=== PATIENT | female | born 2000 | race African-American/Black ===

== ENCOUNTER 2019-10-31 07:15 | Inpatient (IN) | payer MEDICAID ==
[~2019-10-31 07:15] MED LIST: Lactated Ringers 1,000 ML IV SCH
[2019-10-31] MEDS ORDERED: cefOXitin 1 GM Vial ONE ×2 (08:11→11:38)
[2019-10-31] MEDS ORDERED: Oxytocin 10 Units/1 ML SDV ONE ×2 (08:11→12:03)
[2019-10-31] MEDS ORDERED: Sodium Chloride 0.9% 0 ML ONE (08:12)
[2019-10-31] MEDS ORDERED: Naloxone 0.4 MG/ML SDV IVPUSH PRN (11:31)
[2019-10-31] MEDS ORDERED: HYDROmorphone/Normal Saline 15 MG/30 ML PCA IV PRN (11:31)
[2019-10-31] MEDS ORDERED: diphenhydrAMINE 50 MG/ML SDV IVPUSH PRN (11:31)
[2019-10-31] MEDS ORDERED: diphenhydrAMINE 25 MG Cap PO PRN (11:31)
[2019-10-31] MEDS ORDERED: Ondansetron 4 MG/2 ML SDV IVPUSH PRN ×2 (11:31→13:11)
[2019-10-31] MEDS ORDERED: ePHEDrine 50 MG/ML SDV ONE (11:45)
[2019-10-31] MEDS ORDERED: Sodium Chloride 0.9% 10 ML ONE (11:53)
[2019-10-31] MEDS ORDERED: Phenylephrine 1% 10 MG/ML SDV ONE (11:54)
[2019-10-31] MEDS ORDERED: cefOXitin 2 GM Vial ONE (12:04)
[2019-10-31] MEDS: Ibuprofen 600 MG Tab PO SCH ×2 (14:52→20:46)
[2019-10-31] MEDS: Dextrose 5%-Lactated Ringers 1,000 ML IV SCH ×2 (15:40→22:24)
[2019-10-31] MEDS: Acetaminophen 500 MG Tab PO SCH ×2 (15:41→22:22)
[2019-10-31] MEDS ORDERED: hydrOXYzine HCL 100 MG/2 ML SDV IM PRN (16:46)
[2019-10-31] MEDS: hydrOXYzine HCl 25 MG Tab PO PRN (17:39)
[2019-10-31] MEDS: oxyCODONE 5 MG Tab PO PRN (17:39)
[2019-10-31] MEDS: cefOXitin 2 GM in Sodium Chloride 0.9% 50 ML IV SCH (17:40)
[2019-10-31] MEDS ORDERED: Ibuprofen 600 MG Tab PO SCH (18:00)
[2019-11-01] MEDS: cefOXitin 2 GM in Sodium Chloride 0.9% 50 ML IV SCH ×3 (01:05→12:05)
[2019-11-01] MEDS: Ibuprofen 600 MG Tab PO SCH ×4 (02:45→20:27)
[2019-11-01] MEDS: oxyCODONE 5 MG Tab PO PRN ×4 (02:45→23:08)
[2019-11-01] MEDS: Acetaminophen 500 MG Tab PO SCH ×4 (04:17→23:08)
[2019-11-01] MEDS: Dextrose 5%-Lactated Ringers 1,000 ML IV SCH (04:53)
[2019-11-01] MEDS: hydrOXYzine HCl 25 MG Tab PO PRN ×2 (05:03→12:04)
[2019-11-01] MEDS ORDERED: Dextrose 5%-Lactated Ringers 1,000 ML IV SCH (10:15)
[2019-11-01] MEDS: Docusate Sodium 100 MG Cap PO SCH ×2 (12:00→20:27)
[2019-11-01] MEDS: Bisacodyl 5 MG Tab PO SCH ×2 (12:00→20:27)
[2019-11-02] MEDS: Ibuprofen 600 MG Tab PO SCH ×2 (03:22→09:08)
[2019-11-02] MEDS: Acetaminophen 500 MG Tab PO SCH ×2 (03:22→11:07)
[2019-11-02] MEDS: oxyCODONE 5 MG Tab PO PRN (07:34)
[2019-11-02] MEDS: Docusate Sodium 100 MG Cap PO SCH (09:08)
[2019-11-02] MEDS: Bisacodyl 5 MG Tab PO SCH (09:08)
--- NOTE | 2019-11-02 14:21 | PN ---
DATE OF SERVICE: 11/01/2019 The patient is postoperative day #1 from a section electively as a repeat section. She also had an incisional hernia repair concurrently. Postoperatively, she has done well. She is tolerating oral pain medication at this point. We will go up to a regular diet today and give her some bowel stimulation. Dorman catheter will be coming out. Otherwise, maximize activity and work with pulmonary toilet. Sushil Galevz MD /[id number]
--- NOTE | 2019-11-10 12:41 | OR ---
DATE OF PROCEDURE: 10/31/2019 SURGEON: Sushil Galvez MD PREOPERATIVE DIAGNOSIS: Term with history of previous section. POSTOPERATIVE DIAGNOSES: 1. Term with history of previous section. 2. Incisional hernia. OPERATIVE PROCEDURE: 1. Repeat section (91071). 2. Repair of incisional hernia (93296). ANESTHESIA: Spinal. APPLICATION SYSTEMS ENGINEER: Billie Keith CNM. INDICATIONS FOR PROCEDURE: This is a 19-year-old female presenting with a term and history of previous section. The plan is to proceed with repeat section. Potential risks including bleeding, infection, injury to underlying viscera, injury to baby and to mother during the procedure were all reviewed, and the patient wishes to proceed. DETAILS OF PROCEDURE: The patient was taken to the operating room, and after spinal anesthetic was placed, a Dorman catheter was placed, and the patient was positioned with a hip roll on the right side to offload the vena cava. The abdomen was then prepped and draped. The previous transverse Pfannenstiel incision was made and carried down through the skin, subcutaneous tissue and through the anterior rectus sheath. Rectus sheath flaps were then raised superiorly and inferiorly. The patient was noted to have an incisional hernia with some incarcerated omentum in between the leaves of the rectus muscle on the upper half of the incision. This was dissected free at this point and returned back into the peritoneal cavity. The remaining attachments between the rectus muscles were then divided in the midline, and then the peritoneal reflection of the bladder on the uterus was divided and reflected downward. A transverse uterine incision was made. A viable female was delivered through a vertex presentation. Cord was clamped and cut, and routine care was given off the field per Billie Keith. The patient was given IV intrauterine oxytocin and IV cefoxitin. The placental separation appeared to be clean and the placenta delivered without difficulty. Uterine contractions were satisfactory, and the uterus was then closed with 2 layers of 2-0 Vicryl stitch as was the peritoneal reflection of the bladder on the uterus. The midline musculature was then approximated, which included repair of the incisional hernia with a #2 Vicryl stitch. Anterior rectus sheath was also closed with a #2 Vicryl stitch, subcutaneous tissue with 4-0 Vicryl stitch, and the skin with a 4-0 Vicryl subcuticular stitch. Some surgical glue was then placed on the incision. The patient was taken to the recovery room in satisfactory condition. There were no evident complications. Sushil Galvez MD /[id number]
== END 2019-11-02 14:00 | disposition home or self-care (01) | DRG 787 ==
LOC: EDSTATUS 07:15 → JP.SDSSCHI 08:19 → JP.SDS 08:20 → JP.OB 12:02 → JP.MS 12:35
PROVIDERS: ADMIT Surgery; ATTEND Surgery
PROC: 10D00Z1 Extraction of Products of Conception, Low, Open Approach (ICD-10-PCS; principal; 2019-10-31)
PROC: 0WQF0ZZ Repair Abdominal Wall, Open Approach (ICD-10-PCS; 2019-10-31)
DX: O34.211 Maternal care for low transverse scar from previous cesarean delivery (principal); K43.0 Incisional hernia with obstruction, without gangrene; Z3A.39 39 weeks gestation of pregnancy; Z37.0 Single live birth; Z88.0 Allergy status to penicillin; Z87.891 Personal history of nicotine dependence
CPT/HCPCS: 36415; 59409; 80305-QW; 85027; 86850; 86900; 86901; 88307; A9270-GY; J0694; J1170; J2370; J2590; J7050; J7120; J7121